=== PATIENT | male | born 1965 | race Caucasian/White ===

== ENCOUNTER 2018-12-18 09:56 | Emergency (ER) | payer SELFPAY ==
[2018-12-18] MEDS ORDERED: ASPIRIN 81 MG TABLET, CHEWABLE PO ONE (10:08)
[2018-12-18] MEDS ORDERED: TENECTEPLASE INJ 50 MG KIT IV ONE (10:12)
[2018-12-18 10:22] LABS: HEMATOCRIT 47.9 % (37.9-51.0); HEMOGLOBIN 16.4 g/dL (13.5-17.0); MEAN CORPUSCULAR HEMOGLOBIN 30.9 pg (27.0-33.4); MEAN CORPUSCULAR HGB CONC 34.3 g/dL (32.0-36.0); MEAN CORPUSCULAR VOLUME 90 fl (80-97); PLATELET COUNT 279 10^3/uL (150-450); RED BLOOD COUNT 5.32 10^6/uL (4.35-5.55); RED CELL DISTRIBUTION WIDTH 13.8 % (11.5-14.0); WHITE BLOOD COUNT 12.4 10^3/uL (4.0-10.5)
[2018-12-18] MEDS ORDERED: ONDANSETRON HCL INJ/PF 4 MG/2 ML SDV IV ONE (10:27)
[2018-12-18] MEDS ORDERED: CLOPIDOGREL BISULFATE 300 MG TABLET PO ONE (10:27)
[2018-12-18] MEDS ORDERED: NORMAL SALINE 1000 ML 1,000 ML IV ONE (10:27)
[2018-12-18 10:28] LABS: INTERNATIONAL RATION (INR) 0.91; PARTIAL THROMBOPLASTIN TIME 27.7 SEC (23.5-35.8); PROTHROMBIN TIME 12.7 SEC (11.4-15.4)
--- NOTE | 2018-12-18 10:29 | RADIOLOGY REPORT (SQ) ---
EXAM DESCRIPTION: CHEST SINGLE VIEW COMPLETED DATE/TIME: 12/18/2018 10:24 am REASON FOR STUDY: Chest Pain r/o ND COMPARISON: None. EXAM PARAMETERS: NUMBER OF VIEWS: One view. TECHNIQUE: Single frontal radiographic view of the chest acquired. RADIATION DOSE: NA LIMITATIONS: None. FINDINGS: LUNGS AND PLEURA: No opacities, masses or pneumothorax. No pleural effusion. MEDIASTINUM AND HILAR STRUCTURES: No masses. Contour normal. HEART AND VASCULAR STRUCTURES: Heart normal in size. Normal vasculature. BONES: No acute findings. HARDWARE: None in the chest. OTHER: No other significant finding. IMPRESSION: NO ACUTE RADIOGRAPHIC FINDING IN THE CHEST. TECHNICAL DOCUMENTATION: JOB ID: [id number] [employer]- All Rights Reserved Reading location - IP/workstation name: [email or web address]
[2018-12-18 10:43] LABS: ANION GAP 15 (5-19); BLOOD UREA NITROGEN 19 mg/dL (7-20); CALCIUM 10.8 mg/dL (8.4-10.2); CARBON DIOXIDE 24 mmol/L (22-30); CHLORIDE 106 mmol/L (98-107); CREATINE KINASE 201 U/L (55-170); GLUCOSE 209 mg/dL (75-110); POTASSIUM 4.7 mmol/L (3.6-5.0); SODIUM 144.7 mmol/L (137-145)
[2018-12-18] MEDS ORDERED: ENOXAPARIN SODIUM INJ 100 MG/1 ML DISP.SYRIN SUBCUT ONE (10:43)
--- NOTE | 2018-12-18 10:47 | ER Document Report ---
Entered by ABBY COHEN SCRIBE 12/18/18 1016 Acting as scribe for:LIZZETH WEST DO ED Cardiac - General Chief Complaint: Chest Pain Stated Complaint: CHEST PAIN Time Seen by Provider: 12/18/18 10:08 Primary Care Provider: BARBARA COLBERT MD [Primary Care Provider] - Follow up as needed Information source: Patient Notes: 53-year-old that male presents to the emergency department today with complaints of chest pain which began at 0400 this morning. Patient states he tried to take Pepto-Bismol for this chest pain with no relief. Patient states he does not see a doctor regularly but to his knowledge he has no cardiac history. Patient states that he smokes cigarettes "every once in a while" along with occasional marijuana. Patient states he has had some associated nausea but denies any shortness of breath. No history of heart disease. Patient does not have any medical problems that he is aware of. TRAVEL OUTSIDE OF THE [place] IN LAST 30 DAYS: No - Related Data Allergies/Adverse Reactions: No Known Allergies Allergy (Unverified 12/18/18 10:06) Past Medical History - General Information source: Patient - Social History Smoking Status: Current Some Day Smoker Cigarette use (# per day): Yes Frequency of alcohol use: Social Drug Abuse: Marijuana Lives with: Family Family History: Reviewed & Not Pertinent Review of Systems - Review of Systems Constitutional: No symptoms reported EENT: No symptoms reported Cardiovascular: See HPI, Chest pain Respiratory: denies: Short of breath Gastrointestinal: See HPI, Nausea Genitourinary: No symptoms reported Male Genitourinary: No symptoms reported Musculoskeletal: No symptoms reported Skin: No symptoms reported Hematologic/Lymphatic: No symptoms reported Neurological/Psychological: No symptoms reported -: Yes All other systems reviewed and negative Physical Exam - Notes Notes: Physical Exam: General: Alert, appears uncomfortable. HEENT: Normocephalic. Atraumatic. PERRL. Extraocular movements intact. Oropharynx clear. Neck: Supple. Non-tender. Respiratory: No respiratory distress. Clear and equal breath sounds bilaterally. Cardiovascular: Regular rate and rhythm. Abdominal: Normal Inspection. Non-tender. No distension. Normal Bowel Sounds. Back: Non-tender. No deformity or step off. Extremities: Moves all four extremities. Upper extremities: Normal inspection. Normal ROM. Lower extremities: Normal inspection. No edema. Normal ROM. Neurological: Normal cognition. AAOx4. Normal speech. Psychological: Normal affect. Normal Mood. Skin: Warm. Diaphoretic. Normal color. 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 12/18/18 10:20 Dr. Wagner Bautista, Interventional cardiology returned call, requests copy of EKG, accepted for flight transfer. 10:40 Patient is a 53-year-old male who presents with chest pain and nausea. He has ST elevation in II, III,m aVF on EKG with reciprocal changes. Patient had STEMI protocol started in the emergency department. He was given aspirin 324, Plavix 300, Lovenox 85 mg based on his 86 kg weight, and tenecteplase 45 mg again based on his 86 kg weight. Patient is diaphoretic. Repeat EKG shows no changes from first EKG. Patient was discussed with Dr. Bautista at [facility], which is the patient's preferred hospital. EKG has been sent and Dr. Bautista agrees that it is a STEMI. He has been accepted and will go via air to [facility]. Transport is here to get him. He is stable at this time for transport. Of note instructions have been given for no morphine, nitroglycerin. Patient is receiving fluid bolus. Mother is present at bedside. 12/18/18 10:47 - Laboratory Result Diagrams: 12/18/18 10:14 12/18/18 10:14 Laboratory results interpreted by me: 12/18/18 10:14 WBC 12.4 H Critical Care Note - Critical Care Note Total time excluding time spent on procedures (mins): 50 - Evaluation and management of STEMI, multiple re-evaluations, coordination of transfer, counseling of patient and family Discharge - Discharge Clinical Impression: STEMI (ST elevation myocardial infarction) Qualifiers: Involved coronary artery: unspecified coronary artery Qualified Code(s): I21.3 - ST elevation (STEMI) myocardial infarction of unspecified site Condition: Stable Disposition: [facility] Scribe Attestation: 12/18/18 10:47 I personally performed the services described in the documentation, reviewed and edited the documentation which was dictated to the scribe in my presence, and it accurately records my words and actions. I personally performed the services described in the documentation, reviewed and edited the documentation which was dictated to the scribe in my presence, and it accurately records my words and actions.
[2018-12-18 10:54] VITALS: BP 168/127
[2018-12-18 10:55] LABS: CREATINE KINASE MB 6.58 ng/mL (<4.55)
[2018-12-18 11:00] LABS: TROPONIN I 0.249 ng/mL
[2018-12-18] MEDS ORDERED: CLOPIDOGREL BISULFATE 300 MG TABLET ONE (11:10)
[2018-12-18] MEDS ORDERED: ASPIRIN 81 MG TABLET, CHEWABLE ONE (11:10)
[2018-12-18 11:16] LABS: ALANINE AMINOTRANSFERASE 41 U/L (21-72); ALBUMIN 4.9 g/dL (3.5-5.0); ALKALINE PHOSPHATASE 97 U/L (38-126); ASPARTATE AMINO TRANSFERASE 50 U/L (17-59); BILIRUBIN,DIRECT 0.3 mg/dL (0.0-0.4); BILIRUBIN,TOTAL 0.6 mg/dL (0.2-1.3); TOTAL PROTEIN 9.3 g/dL (6.3-8.2)
--- NOTE | 2018-12-18 22:55 | EKG REPORT ---
SEVERITY:- ABNORMAL ECG - SINUS RHYTHM PROBABLE LEFT ATRIAL ABNORMALITY INFERIOR INFARCT, ACUTE ANTERIOR INFARCT, OLD : Confirmed by: Dionte Garcia 18-Dec-2018 22:55:05
--- NOTE | 2018-12-18 22:55 | EKG REPORT ---
SEVERITY:- ABNORMAL ECG - SINUS RHYTHM PROBABLE LEFT ATRIAL ABNORMALITY INFERIOR INFARCT, ACUTE ANTERIOR INFARCT, OLD PROLONGED QT INTERVAL : Confirmed by: Dionte Garcia 18-Dec-2018 22:54:57
== END 2018-12-18 10:40 | disposition short-term general hospital (02) ==
LOC: ER 09:56
DX: I21.3 ST elevation (STEMI) myocardial infarction of unspecified site (principal); R11.0 Nausea; R07.9 Chest pain, unspecified; R06.02 Shortness of breath; F12.10 Cannabis abuse, uncomplicated; R61 Generalized hyperhidrosis; F17.210 Nicotine dependence, cigarettes, uncomplicated
CPT/HCPCS: 93005; 99291; 96372; 96374; 96375; 36415; 82553; 82550; 85027; 85610; 85730; 80076; 80048; 84484; 71045; 93010; J3101; J3490; J2405; J7030; J1650

== ENCOUNTER 2019-03-01 03:34 | Inpatient (IN) | payer OTHER ==
[2019-03-01] MEDS ORDERED: IPRATROPIUM/ALBUTEROL 0.5-2.5 MG/3 ML AMPUL NEB ONE ×2 (03:39→03:44)
[2019-03-01] MEDS ORDERED: NITROGLYCERIN/D5W 50 MG/250 ML RTUINJ IV PRN (03:44)
[2019-03-01 03:57] LABS: ABSOLUTE BASOPHILS # (AUTO) 0.1 10^3/uL (0.0-0.2); ABSOLUTE EOSINOPHILS # (AUTO) 0.2 10^3/uL (0.0-0.6); ABSOLUTE LYMPHOCYTES (AUTO) 6.1 10^3/uL (0.5-4.7); ABSOLUTE MONOCYTES (AUTO) 0.7 10^3/uL (0.1-1.4); ABSOLUTE NEUT (AUTO) 5.7 10^3/uL (1.7-8.2); BASOPHILS % (AUTO) 0.7 % (0-2); EOSINOPHILS % (AUTO) 1.8 % (0-6); HEMATOCRIT 44.6 % (37.9-51.0); HEMOGLOBIN 14.4 g/dL (13.5-17.0); LYMPHOCYTES % (AUTO) 47.1 % (13-45); MEAN CORPUSCULAR HEMOGLOBIN 29.4 pg (27.0-33.4); MEAN CORPUSCULAR HGB CONC 32.2 g/dL (32.0-36.0); MEAN CORPUSCULAR VOLUME 91 fl (80-97); MONOCYTES % (AUTO) 5.8 % (3-13); PLATELET COUNT 249 10^3/uL (150-450); RED BLOOD COUNT 4.88 10^6/uL (4.35-5.55); RED CELL DISTRIBUTION WIDTH 15.1 % (11.5-14.0); SEGMENTED NEUTROPHILS % (AUTO) 44.6 % (42-78); TOTAL CELLS COUNTED % (AUTO) 100 %; VENOUS BLOOD BASE EXCESS -10.5 mmol/L; VENOUS BLOOD HCO3 23.5 mmol/L (20-32); WHITE BLOOD COUNT 12.9 10^3/uL (4.0-10.5)
[2019-03-01 04:00] LABS: ARTERIAL BLOOD BASE EXCESS -12.5 mmol/L; ARTERIAL BLOOD H2CO3 2.48 mmol/L (1.05-1.35); ARTERIAL BLOOD HCO3 20.3 mmol/L (20-24); ARTERIAL BLOOD O2 SATURATION 98.6 % (94-98); ARTERIAL BLOOD PO2 195.5 mmHg (80-100); ARTERIAL BLOOD TOTAL CO2 22.9 mmol/L (23-27)
[2019-03-01 04:03] LABS: INTERNATIONAL RATION (INR) 1.04; PROTHROMBIN TIME 14.1 SEC (11.4-15.4)
[2019-03-01 04:04] LABS: ARTERIAL BLOOD FIO2 100%; ARTERIAL BLOOD PCO2 82.3 mmHg (35-45); ARTERIAL BLOOD PH 7.01 (7.35-7.45); VENOUS BLOOD PH 6.99 (7.30-7.42)
[2019-03-01 04:15] LABS: ALANINE AMINOTRANSFERASE 28 U/L (21-72); ALBUMIN 4.8 g/dL (3.5-5.0); ALKALINE PHOSPHATASE 75 U/L (38-126); ANION GAP 15 (5-19); ASPARTATE AMINO TRANSFERASE 31 U/L (17-59); BILIRUBIN,DIRECT 0.3 mg/dL (0.0-0.4); BILIRUBIN,TOTAL 0.7 mg/dL (0.2-1.3); BLOOD UREA NITROGEN 15 mg/dL (7-20); CALCIUM 9.1 mg/dL (8.4-10.2); CARBON DIOXIDE 23 mmol/L (22-30); CHLORIDE 105 mmol/L (98-107); CREATINE KINASE 137 U/L (55-170); GLUCOSE 338 mg/dL (75-110); POTASSIUM 4.1 mmol/L (3.6-5.0); SODIUM 142.9 mmol/L (137-145); TOTAL PROTEIN 8.5 g/dL (6.3-8.2)
--- NOTE | 2019-03-01 04:22 | RADIOLOGY REPORT (SQ) ---
EXAM DESCRIPTION: XR CHEST 1 VIEW COMPLETED DATE/TME: 03/01/2019 03:44 CLINICAL HISTORY: 53 years, Male, SOB, hypoxia COMPARISON: None. NUMBER OF VIEWS: 1 TECHNIQUE: Portable chest LIMITATIONS: None. FINDINGS: Cardiomegaly. Sternotomy wires with placement. Osteopenia with mild diffuse interstitial edema. No pneumothorax IMPRESSION: Cardiomegaly with mild diffuse interstitial edema copyright 2010 [employer]- All Rights Reserved
[2019-03-01 04:26] LABS: CREATINE KINASE MB 1.81 ng/mL (<4.55); TROPONIN I 0.027 ng/mL
[2019-03-01] MEDS ORDERED: FUROSEMIDE INJ/PF 40 MG/4 ML SDV IV ONE (05:18)
[2019-03-01] MEDS ORDERED: METHYLPREDNISOLONE INJ 125 MG/2 ML SDV IV ONE (05:35)
[2019-03-01] MEDS ORDERED: MAG HYDROX/AL HYDROX/SIMETH SUSP 30 ML UDCUP PO PRN (05:45)
[2019-03-01] MEDS ORDERED: ONDANSETRON HCL INJ/PF 4 MG/2 ML SDV IV PRN ×2 (05:45→07:00)
[2019-03-01] MEDS ORDERED: ZOLPIDEM TARTRATE 5 MG TABLET PO PRN (05:45)
[2019-03-01] MEDS ORDERED: MAGNESIUM HYDROXIDE SUSP 30 ML UDCUP PO PRN (05:45)
--- NOTE | 2019-03-01 05:46 | ER Document Report ---
Entered by BAM YOUNG SCRIBE 03/01/19 1055 Acting as scribe for:ROXIE COATES DO ED General - General Stated Complaint: RESPIRATORY DISTRESS Time Seen by Provider: 03/01/19 03:43 Mode of Arrival: Medic Information source: Emergency Med Personnel Notes: Patient is a 53 year old male with a history of quadruple bypass presents to the emergency department via EMS due to shortness of breath. EMS states the patient's mother called EMS after the patient began complaining of shortness of breath. Upon EMS arrival, the patient was found to be hypoxic with an oxygen saturation rate of 78% on room air, a blood pressure of 205/130 and an heart rate of 130 bpm. EMS states they placed the patient on CPAP however he became more short of breath and altered so they proceeded to bag the patient. They also administered sublingual nitro. Patient has a blood pressure of 205/130 and a heart rate of 130. TRAVEL OUTSIDE OF THE [place] IN LAST 30 DAYS: No - Related Data Allergies/Adverse Reactions: No Known Allergies Allergy (Unverified 12/18/18 10:06) Past Medical History - General Information source: Emergency Med Personnel, [facility] Records - Social History Smoking Status: Former Smoker Cigarette use (# per day): Yes Chew tobacco use (# tins/day): No Smoking Education Provided: No Frequency of alcohol use: Social Drug Abuse: Marijuana Lives with: Family Family History: Reviewed & Not Pertinent Review of Systems - Review of Systems Notes: ROS obtained from EMS Constitutional: No symptoms reported EENT: No symptoms reported Cardiovascular: No symptoms reported Respiratory: See HPI, Short of breath Gastrointestinal: No symptoms reported Genitourinary: No symptoms reported Male Genitourinary: No symptoms reported Musculoskeletal: No symptoms reported Skin: No symptoms reported Hematologic/Lymphatic: No symptoms reported Neurological/Psychological: No symptoms reported -: Yes All other systems reviewed and negative Physical Exam - Vital signs Vitals: Resp Pulse Ox 32 H 82 L 03/01/19 03:36 03/01/19 03:36 Interpretation: Hypoxic, Tachypneic - Notes Notes: GENERAL: Obtunded, does not answer questions, diaphoretic. Severe respiratory distress. HEAD: Normocephalic, atraumatic. EYES: Pupils equal, round, and reactive to light. Extraocular movements intact. ENT: Oral mucosa moist, tongue midline. NECK: Full range of motion. Supple. Trachea midline. LUNGS: Tachypneic, inspiratory crackles, expiratory wheezes. Severe respiratory distress. Poor movement HEART: Tachycardic. No murmurs, gallops, or rubs. ABDOMEN: Soft, non-tender. Non-distended. Bowel sounds present in all 4 quadrants. No guarding, rigidity, or rebound. EXTREMITIES: Moves all 4 extremities spontaneously. No edema, radial and dorsalis pedis pulses 2/4 bilaterally. No cyanosis. NEUROLOGICAL: Obtunded, does not answer questions. PSYCH: Obtunded,does not answer questions. SKIN: Warm, diaphoretic. Course - Re-evaluation Re-evalutation: 03/01/19 03:45 Patient placed on BiPAP upon arrival to the ED. BiPAP is set to 16/6 at 100% with a base rate of 8. 03/01/19 05:43 Patient is improved significantly on BiPAP, 3 duo nebs and a high-dose nitroglyc nicolas. Patient is now wide awake, no longer diaphoretic and is able to provide bit more history. Patient denies any history of COPD or congestive heart failure. States that he used to smoke but he quit several decades ago. Denies any chest pain states he is feeling much better. Blood work reveals leukocytosis at 12.9, coags normal, arterial blood gas shows respiratory acidosis with pH of 7.01 and a PCO2 of 82.3, chemistries show slightly elevated creatinine at 1.29, elevated glucose at 338, lactic acid elevated at 4.0 although he does not have any other signs of sepsis, does not meet sepsis criteria and there is no source of infection. Troponin is detectable but still negative at 0.027, proBNP elevated at 2520. Chest x-ray shows diffuse interstitial edema but no signs of pneumonia. Discussed patient with Dr. Lanza who agrees to accept the patient to the IMCU and admission status. - Vital Signs Vital signs: Temp Pulse Resp BP Pulse Ox 97.3 F 18 120/89 H 100 03/01/19 05:46 03/01/19 05:46 03/01/19 05:46 03/01/19 05:46 - Laboratory Result Diagrams: 03/01/19 03:50 03/01/19 03:50 Laboratory results interpreted by me: 03/01/19 03/01/1919 03:50 03:50 03:50 WBC 12.9 H RDW 15.1 H Lymphocytes % 47.1 H Absolute Lymphocytes 6.1 H Carbonic Acid ABG pH ABG pCO2 ABG pO2 ABG Total CO2 ABG O2 Saturation VBG pH VBG pCO2 Creatinine 1.29 H Est GFR (Non-Af Amer) 58 L Glucose 338 H POC Glucose Lactic Acid NT-Pro-B Natriuret Pep 2520 H Total Protein 8.5 H 03/01/19 03/01/19 03/01/19 03:50 03:50 03:50 WBC RDW Lymphocytes % Absolute Lymphocytes Carbonic Acid 2.48 H ABG pH 7.01 L* ABG pCO2 82.3 H* ABG pO2 195.5 H ABG Total CO2 22.9 L ABG O2 Saturation 98.6 H VBG pH 6.99 L* VBG pCO2 99.0 H* Creatinine Est GFR (Non-Af Amer) Glucose POC Glucose Lactic Acid 4.0 H NT-Pro-B Natriuret Pep Total Protein 03/01/19 03:57 WBC RDW Lymphocytes % Absolute Lymphocytes Carbonic Acid ABG pH ABG pCO2 ABG pO2 ABG Total CO2 ABG O2 Saturation VBG pH VBG pCO2 Creatinine Est GFR (Non-Af Amer) Glucose POC Glucose 311 H Lactic Acid NT-Pro-B Natriuret Pep Total Protein - EKG Interpretation by Me Additional EKG results interpreted by me: 03/01/19 05:45 EKG shows sinus tachycardia at a rate of 125, normal axis, poor R wave progression, no ST segment elevations or depressions, there are T wave inversions noted in 2, 3, AVF as well as V6 per my interpretation. Critical Care Note - Critical Care Note Total time excluding time spent on procedures (mins): 45 Discharge - Discharge Clinical Impression: Acute respiratory failure with hypoxia and hypercapnia, Acute pulmonary edema, Acute respiratory acidosis Condition: Fair Disposition: ADMITTED INPATIENT Admitting Provider: Pool (Hospitalist) I personally performed the services described in the documentation, reviewed and edited the documentation which was dictated to the scribe in my presence, and it accurately records my words and actions.
[2019-03-01] MEDS ORDERED: ACETAMINOPHEN 325 MG TABLET PO PRN (05:53)
[2019-03-01] MEDS ORDERED: MORPHINE SULFATE 10 MG/ML INJ IV PRN ×4 (05:53→06:01)
[2019-03-01] MEDS ORDERED: INSULIN REG, HUMAN 100 UNIT/ML 3 ML VIAL (PYX) SUBCUT PRN (05:53)
[2019-03-01] MEDS ORDERED: NICOTINE 21 MG/24 HR PATCH.TD24 TD PRN (05:53)
[2019-03-01] MEDS ORDERED: NITROGLYCERIN 0.4 MG/TAB 25 TAB/BOTTLE SL PRN (05:53)
[2019-03-01] MEDS ORDERED: LEVALBUTEROL HCL NEB 0.63 MG/3 ML AMPUL NEB PRN (05:53)
[2019-03-01] MEDS ORDERED: NITROGLYCERIN 2% OINTMENT 1 GM PACKET TP SCH (06:00)
[2019-03-01] MEDS ORDERED: HYDRALAZINE HCL INJ/PF 20 MG/1 ML SDV IV PRN (06:31)
[2019-03-01] MEDS ORDERED: METOPROLOL TARTRATE PF/INJ 5 MG/5 ML SDV IV PRN (06:32)
--- NOTE | 2019-03-01 06:55 | PDOC H&P ---
History of Present Illness Admission Date/PCP: 03/01/2019 06:00 No Local PCP Patient complains of: Dyspnea History of Present Illness: CANDACE HAMLIN is a 53 year old male who presented to the emergency room with acute onset dyspnea. Patient relates that he was at home in bed asleep when he thou ght he heard something out in his yard. He got up out of bed and ran outside to see what was going on and subsequently suddenly developed severe dyspnea causing him to summon EMS for assistance. He denies other associated symptoms and also denies prior similar episodes. He has not identified any aggravating or ameliorating factors for his acute onset dyspnea. Upon the arrival of EMS to the patient's home they found him tachycardic with a heart rate of 130, hypoxic with an O2 sat of 78% and hypertensive with a blood pressure of 205/130. Patient was unable to tolerate CPAP and required supplemental oxygen with [id number] delivery and he was also administered nitroglycerin sublingually. Upon the patient's arrival to the emergency room he was found to have continued hypoxia hypertension and tachycardia. His chest x-ray revealed interstitial edema consistent with acute pulmonary edema and he was treated with intravenous Lasix as well as intravenous Solu-Medrol and aerosol nebulizer treatments with DuoNeb. He was given supplemental oxygen via BiPAP and was started on a nitroglycerin intravenous infusion. Patient showed significant improvement and was subsequently admitted to the hospital for further evaluation and treatment. Past Medical History Cardiac Medical History: Reports: Coronary Artery Disease, Myocardial Infarction, Hyperlipidema, Hypertension Denies: Atrial Fibrillation, Congestive Heart Failure, DVT, Peripheral Vascu lar Disease, Pulmonary Embolism Pulmonary Medical History: Denies: Asthma, Chronic Obstructive Pulmonary Disease (COPD), Respiratory Failure EENT Medical History: Denies: Cataracts, Ears - Hearing aids Neurological Medical History: Denies: Hemorrhagic CVA, Ischemic CVA, Seizures Endocrine Medical History: Denies: Diabetes Mellitus Type 1, Diabetes Mellitus Type 2, Hyperthyroidism, Hypothyroidism Renal/ Medical History: Denies: Chronic Kidney Disease, Nephrolithiasis Malignancy Medical History: Reports: None GI Medical History: Denies: Cirrhosis, Hepatitis Musculoskeltal Medical History: Denies: Arthritis, Gout Skin Medical History: Denies: Eczema, Psoriasis Psychiatric Medical History: Reports: Substance Abuse Denies: Alcohol Dependency, Tobacco Dependency Traumatic Medical History: Reports: None Hematology: Denies: Anemia, Bleeding Tendencies Infectious Medical History: Reports: None Past Surgical History Past Surgical History: Reports: Cardiac Catheterization, Coronary Artery Bypass Graft - X4 grafts, Coronary Stent - X 1 Social History Information Source: Patient Lives with: Family Smoking Status: Former Smoker Frequency of Alcohol Use: None Hx Recreational Drug Use: Yes - No current use of marijuana. Drugs: Marijuana Hx Prescription Drug Abuse: No - Advance Directive Resuscitation Status: Full Code Surrogate healthcare decision maker:: Mariaa Hamlin Family History Family History: DM, Hypertension. denies: CAD, Hyperlipidemia, Malignancy Parental Family History Reviewed: Yes Children Family History Reviewed: No Sibling(s) Family History Reviewed.: Yes Medication/Allergy Allergies/Adverse Reactions: No Known Allergies Allergy (Unverified 12/18/18 10:06) Review of Systems Constitutional: ABSENT: chills, fever(s) Eyes: ABSENT: visual disturbances, other - Eye pain Ears: ABSENT: hearing changes, other - Ear pain Nose, Mouth, and Throat: ABSENT: mouth pain, sore throat Cardiovascular: PRESENT: as per HPI, dyspnea on exertion. ABSENT: chest pain, edema, orthropnea, palpitations Respiratory: PRESENT: as per HPI, dyspnea. ABSENT: cough Gastrointestinal: ABSENT: abdominal pain, constipation, diarrhea, nausea, vomiting Genitourinary: ABSENT: dysuria, hematuria Musculoskeletal: ABSENT: back pain, joint swelling, muscle weakness Integumentary: ABSENT: pruritus, rash Neurological: ABSENT: confusion, convulsions, focal weakness, memory loss, syncope Psychiatric: ABSENT: anxiety, depression Endocrine: ABSENT: cold intolerance, heat intolerance Hematologic/Lymphatic: ABSENT: easy bleeding, easy bruising Physical Exam Vital Signs: Temp Pulse Resp BP Pulse Ox 97.3 F 18 120/89 H 100 03/01/19 05:46 03/01/19 05:46 03/01/19 05:46 03/01/19 05:46 Intake & Output 02/27/19 02/28/19 03/01/19 23:59 23:59 23:59 Intake Total 14 Balance 14 Weight 90.1 kg General appearance: PRESENT: cooperative, mild distress - On BiPAP, obese, other - On BiPAP Head exam: PRESENT: atraumatic, normocephalic Eye exam: ABSENT: conjunctival injection, scleral icterus Ear exam: PRESENT: normal external ear exam. ABSENT: bleeding, drainage Mouth exam: PRESENT: dry mucosa, neck supple Neck exam: ABSENT: JVD, thyromegaly, tracheal deviation Respiratory exam: PRESENT: accessory muscle use - Minimal accessory muscle use while on BiPAP, rales - Minimal bibasilar fine rales noted at the time of my exam, symmetrical, other - On BiPAP. ABSENT: retraction Cardiovascular exam: PRESENT: RRR, tachycardia. ABSENT: clicks, gallop, rubs Pulses: PRESENT: normal radial pulses, normal dorsalis pedis pul Vascular exam: PRESENT: normal capillary refill. ABSENT: pallor GI/Abdominal exam: PRESENT: normal bowel sounds, soft Extremities exam: ABSENT: joint swelling, pedal edema Musculoskeletal exam: PRESENT: full ROM, normal inspection Neurological exam: PRESENT: alert, oriented to person, oriented to place, oriented to time, oriented to situation, CN II-XII grossly intact. ABSENT: motor sensory deficit Psychiatric exam: PRESENT: appropriate affect, normal mood Skin exam: PRESENT: dry, intact, warm. ABSENT: jaundice, rash, urticaria Results Laboratory Results: 03/01/19 03:50 03/01/19 03:50 03/01/19 03/01/19 03/01/19 03:50 03:50 03:50 WBC 12.9 H RBC 4.88 Hgb 14.4 Hct 44.6 MCV 91 MCH 29.4 MCHC 32.2 RDW 15.1 H Plt Count 249 Seg Neutrophils % 44.6 Lymphocytes % 47.1 H Monocytes % 5.8 Eosinophils % 1.8 Basophils % 0.7 Absolute Neutrophils 5.7 Absolute Lymphocytes 6.1 H Absolute Monocytes 0.7 Absolute Eosinophils 0.2 Absolute Basophils 0.1 Carbonic Acid HCO3/H2CO3 Ratio ABG pH ABG pCO2 ABG pO2 ABG HCO3 ABG O2 Saturation ABG Base Excess VBG pH VBG pCO2 VBG HCO3 VBG Base Excess FiO2 Sodium 142.9 Potassium 4.1 Chloride 105 Carbon Dioxide 23 Anion Gap 15 BUN 15 Creatinine 1.29 H Est GFR ( Amer) > 60 Est GFR (Non-Af Amer) 58 L Glucose 338 H Lactic Acid 4.0 H Calcium 9.1 Total Bilirubin 0.7 AST 31 ALT 28 Alkaline Phosphatase 75 Total Protein 8.5 H Albumin 4.8 03/01/19 03/01/19 03:50 03:50 WBC RBC Hgb Hct MCV MCH MCHC RDW Plt Count Seg Neutrophils % Lymphocytes % Monocytes % Eosinophils % Basophils % Absolute Neutrophils Absolute Lymphocytes Absolute Monocytes Absolute Eosinophils Absolute Basophils Carbonic Acid 2.48 H HCO3/H2CO3 Ratio 8:1 ABG pH 7.01 L* ABG pCO2 82.3 H* ABG pO2 195.5 H ABG HCO3 20.3 ABG O2 Saturation 98.6 H ABG Base Excess -12.5 VBG pH 6.99 L* VBG pCO2 99.0 H* VBG HCO3 23.5 VBG Base Excess -10.5 FiO2 100% Sodium Potassium Chloride Carbon Dioxide Anion Gap BUN Creatinine Est GFR ( Amer) Est GFR (Non-Af Amer) Glucose Lactic Acid Calcium Total Bilirubin AST ALT Alkaline Phosphatase Total Protein Albumin 03/01/19 03/01/19 03:50 03:50 Creatine Kinase 137 CK-MB (CK-2) 1.81 Troponin I 0.027 NT-Pro-B Natriuret Pep 2520 H Impressions: Chest X-Ray 03/01/19 03:44 IMPRESSION: Cardiomegaly with mild diffuse interstitial edema copyright 2011 [employer]- All Rights Reserved Assessment and Plan - Diagnosis (1) Acute pulmonary edema Is this a current diagnosis for this admission?: Yes Plan: Patient's acute pulmonary edema will be treated with topical nitroglycerin paste and supportive and symptomatic cares. A regimen for treatment should be established after evaluation of his cardiac function via echocardiogram and also serial cardiac enzymes have been obtained ruling out an acute myocardial infarction. (2) Acute respiratory failure with hypoxia and hypercapnia Is this a current diagnosis for this admission?: Yes Plan: Patient be treated with BiPAP and supplemental oxygen for correction of his hypoxia and hypercapnia. He will be monitored with serial arterial blood gases as required. Nebulized Xopenex will be given if needed for wheezing. (3) Hypertensive crisis Is this a current diagnosis for this admission?: Yes Plan: Patient's hypertensive crisis will be treated with topical nitroglycerin paste and further antihypertensive agents administered intravenously as required using metoprolol 5 mg IV every 4 hours and/or hydralazine 20 mg IV every 4 hours as needed for systolic blood pressure greater than 160 and/or diastolic pressure greater than 100. (4) Coronary artery disease Qualifiers: Coronary Disease-Associated Artery/Lesion type: [place] artery [place] vs. transplanted heart: [place] heart Associated angina: without angina Qualified Code(s): I25.10 - Atherosclerotic heart disease of [place] coronary artery without angina pectoris Is this a current diagnosis for this admission?: Yes Plan: Patient has a history of coronary artery disease with a recent STEMI. He will have serial cardiac enzymes performed and further treatment as indicated. Cardiology consultation will be considered. Patient will receive morphine sulfate 2 to 4 mg IV every 2 hours on a as needed basis via sliding scale should he develop chest pain. - Time Time Spent with patient: 25-34 minutes Smoking Cessation Education: 3 to 10 minutes - Recommend smoking cessation: Counseled briefly Medications reviewed and adjusted accordingly: Yes Anticipated discharge: Home with Homehealth - Inpatient Certification Based on my medical assessment, after consideration of the patient's c omorbidities, presenting symptoms, or acuity I expect that the services needed warrant INPATIENT care.: Yes I certify that my determination is in accordance with my understanding of Medicare's requirements for reasonable and necessary INPATIENT services [42 CFR 412.3e].: Yes Medical Necessity: Significant Comorbidiites Make Outpatient Treatment Too Risky, Need Close Monitoring Due to Risk of Patient Decompensation, Need For Continuous Telemetry Monitoring, Need for Nebulizer Therapy and Monitoring of Response, Risk of Complication if Not Cared For in Hospital
[2019-03-01 07:11] LABS: CHOLESTEROL 155.95 mg/dL (0-200); CREATINE KINASE 128 U/L (55-170); TRIGLYCERIDES 133 mg/dL (<150)
--- NOTE | 2019-03-01 07:25 | EKG REPORT ---
SEVERITY:- ABNORMAL ECG - SINUS TACHYCARDIA LEFT ATRIAL ABNORMALITY BORDERLINE INFERIOR Q WAVES, EVOLUTIONARY CHANGES OF A RECENT INFERIOR AK 12/18/18, CONSIDER ANTERIOR INFARCT OLD NONSPECIFIC T ABNORMALITIES, INFERIOR LEADS : Confirmed by: Perico Gramajo MD 01-Mar-2019 07:25:09
[2019-03-01 07:26] LABS: DIRECT LDL 79 mg/dL (<100)
[2019-03-01 07:27] LABS: CREATINE KINASE MB 2.39 ng/mL (<4.55)
[2019-03-01 07:32] LABS: FREE T3 3.24 pg/mL (2.77-5.27); FREE T4 (FREE THYROXINE) 0.38 ng/dL (0.78-2.19)
[2019-03-01 07:38] LABS: TROPONIN I 0.041 ng/mL
[2019-03-01] MEDS ORDERED: IPRATROPIUM BROMIDE 0.02% NEB 0.5 MG/2.5 ML AMPUL NEB SCH (08:00)
[2019-03-01] MEDS ORDERED: BUDESONIDE NEB 0.5 MG/2 ML AMPUL NEB SCH (08:00)
[2019-03-01] MEDS ORDERED: LEVALBUTEROL HCL NEB 1.25 MG/3 ML AMPUL NEB SCH (08:00)
--- NOTE | 2019-03-01 08:43 | PDOC PROGRESS REPORT ---
Subjective Progress Note for:: 03/01/19 Subjective:: 53 year old male who presented to the emergency room with acute onset dyspnea. Patient relates that he was at home in bed asleep when he thought he heard something out in his yard. He got up out of bed and ran outside to see what was going on and subsequently suddenly developed severe dyspnea causing him to summon EMS for assistance. He denies other associated symptoms and also denies prior similar episodes. He has not identified any aggravating or ameliorating factors for his acute onset dyspnea. Upon the arrival of EMS to the patient's home they found him tachycardic with a heart rate of 130, hypoxic with an O2 sat of 78% and hypertensive with a blood pressure of 205/130. Patient was unable to tolerate CPAP and required supplemental oxygen with [id number] delivery and he was also administered nitroglycerin sublingually. Upon the patient's arrival to the emergency room he was found to have continued hypoxia hypertension and tachycardia. His chest x-ray revealed interstitial edema consistent with acute pulmonary edema and he was treated with intravenous Lasix as well as intravenous Solu-Medrol and aerosol nebulizer treatments with DuoNeb. He was given supplemental oxygen via BiPAP and was started on a nitroglycerin intravenous infusion. Patient showed significant improvement and was subsequently admitted to the hospital for further evaluation and treatment. 03/[id number]-hyzb-old male admitted with acute shortness of breath. Shortness of breath was resolved now. Pulse ox was 78% recorded by the EMS. He was also found to be tachycardic with a blood pressure of 205/130 this morning blood pressure is 120/89. Comfortably in the bed laying flat communicating well. No complaints. Reason For Visit: ACUTE PULMONARY EDEMA,ACUTE RESPIRATORY FAILURE Physical Exam Vital Signs: Temp Pulse Resp BP Pulse Ox 97.7 F 88 20 142/92 H 100 03/01/19 08:10 03/01/19 08:10 03/01/19 08:10 03/01/19 08:10 03/01/19 08:10 Intake & Output 02/28/19 03/01/19 03/02/19 06:59 06:59 06:59 Intake Total 14 Balance 14 Weight 90.1 kg 89.2 kg General appearance: PRESENT: no acute distress, obese Head exam: PRESENT: atraumatic Eye exam: PRESENT: PERRLA Neck exam: ABSENT: carotid bruit, JVD, lymphadenopathy, thyromegaly Respiratory exam: PRESENT: clear to auscultation phu. ABSENT: rales, rhonchi, wheezes Cardiovascular exam: PRESENT: RRR. ABSENT: diastolic murmur, rubs, systolic murmur GI/Abdominal exam: PRESENT: normal bowel sounds, soft. ABSENT: distended, guarding, mass, organolmegaly, rebound, tenderness Rectal exam: PRESENT: deferred Neurological exam: PRESENT: alert, awake, oriented to person, oriented to place, oriented to time, oriented to situation, CN II-XII grossly intact. ABSENT: motor sensory deficit Psychiatric exam: PRESENT: appropriate affect, normal mood. ABSENT: homicidal ideation, suicidal ideation Results Laboratory Results: 03/01/19 03:50 03/01/19 03:50 03/01/19 03/01/19 03/01/19 03:50 03:50 03:50 WBC 12.9 H RBC 4.88 Hgb 14.4 Hct 44.6 MCV 91 MCH 29.4 MCHC 32.2 RDW 15.1 H Plt Count 249 Seg Neutrophils % 44.6 Lymphocytes % 47.1 H Monocytes % 5.8 Eosinophils % 1.8 Basophils % 0.7 Absolute Neutrophils 5.7 Absolute Lymphocytes 6.1 H Absolute Monocytes 0.7 Absolute Eosinophils 0.2 Absolute Basophils 0.1 Carbonic Acid HCO3/H2CO3 Ratio ABG pH ABG pCO2 ABG pO2 ABG HCO3 ABG O2 Saturation ABG Base Excess VBG pH VBG pCO2 VBG HCO3 VBG Base Excess FiO2 Sodium 142.9 Potassium 4.1 Chloride 105 Carbon Dioxide 23 Anion Gap 15 BUN 15 Creatinine 1.29 H Est GFR ( Amer) > 60 Est GFR (Non-Af Amer) 58 L Glucose 338 H Lactic Acid 4.0 H Calcium 9.1 Total Bilirubin 0.7 AST 31 ALT 28 Alkaline Phosphatase 75 Total Protein 8.5 H Albumin 4.8 Triglycerides Cholesterol LDL Cholesterol Direct VLDL Cholesterol HDL Cholesterol TSH Free T4 Free T3 pg/mL 03/01/19 03/01/19 03/01/19 03:50 03:50 06:22 WBC RBC Hgb Hct MCV MCH MCHC RDW Plt Count Seg Neutrophils % Lymphocytes % Monocytes % Eosinophils % Basophils % Absolute Neutrophils Absolute Lymphocytes Absolute Monocytes Absolute Eosinophils Absolute Basophils Carbonic Acid 2.48 H HCO3/H2CO3 Ratio 8:1 ABG pH 7.01 L* ABG pCO2 82.3 H* ABG pO2 195.5 H ABG HCO3 20.3 ABG O2 Saturation 98.6 H ABG Base Excess -12.5 VBG pH 6.99 L* VBG pCO2 99.0 H* VBG HCO3 23.5 VBG Base Excess -10.5 FiO2 100% Sodium Potassium Chloride Carbon Dioxide Anion Gap BUN Creatinine Est GFR ( Amer) Est GFR (Non-Af Amer) Glucose Lactic Acid Calcium Total Bilirubin AST ALT Alkaline Phosphatase Total Protein Albumin Triglycerides Cholesterol LDL Cholesterol Direct VLDL Cholesterol HDL Cholesterol TSH 90.00 H Free T4 0.38 L Free T3 pg/mL 3.24 03/01/19 03/01/19 03/01/19 06:22 06:22 07:06 WBC RBC Hgb Hct MCV MCH MCHC RDW Plt Count Seg Neutrophils % Lymphocytes % Monocytes % Eosinophils % Basophils % Absolute Neutrophils Absolute Lymphocytes Absolute Monocytes Absolute Eosinophils Absolute Basophils Carbonic Acid HCO3/H2CO3 Ratio ABG pH ABG pCO2 ABG pO2 ABG HCO3 ABG O2 Saturation ABG Base Excess VBG pH VBG pCO2 VBG HCO3 VBG Base Excess FiO2 Sodium Potassium Chloride Carbon Dioxide Anion Gap BUN Creatinine Est GFR ( Amer) Est GFR (Non-Af Amer) Glucose Lactic Acid Cancelled Cancelled Calcium Total Bilirubin AST ALT Alkaline Phosphatase Total Protein Albumin Triglycerides 133 Cholesterol 155.95 LDL Cholesterol Direct 79 VLDL Cholesterol 27.0 HDL Cholesterol 56 TSH Free T4 Free T3 pg/mL 03/01/19 07:06 WBC RBC Hgb Hct MCV MCH MCHC RDW Plt Count Seg Neutrophils % Lymphocytes % Monocytes % Eosinophils % Basophils % Absolute Neutrophils Absolute Lymphocytes Absolute Monocytes Absolute Eosinophils Absolute Basophils Carbonic Acid HCO3/H2CO3 Ratio ABG pH ABG pCO2 ABG pO2 ABG HCO3 ABG O2 Saturation ABG Base Excess VBG pH VBG pCO2 VBG HCO3 VBG Base Excess FiO2 Sodium Potassium Chloride Carbon Dioxide Anion Gap BUN Creatinine Est GFR ( Amer) Est GFR (Non-Af Amer) Glucose Lactic Acid 2.2 H Calcium Total Bilirubin AST ALT Alkaline Phosphatase Total Protein Albumin Triglycerides Cholesterol LDL Cholesterol Direct VLDL Cholesterol HDL Cholesterol TSH Free T4 Free T3 pg/mL 03/01/19 03/01/19 03/01/19 03:50 03:50 06:22 Creatine Kinase 137 128 CK-MB (CK-2) 1.81 Troponin I 0.027 NT-Pro-B Natriuret Pep 2520 H 03/01/19 06:22 Creatine Kinase CK-MB (CK-2) 2.39 Troponin I 0.041 NT-Pro-B Natriuret Pep Impressions: Chest X-Ray 03/01/19 03:44 IMPRESSION: Cardiomegaly with mild diffuse interstitial edema copyright 2010 [employer]- All Rights Reserved Assessment and Plan - Diagnosis (1) Acute pulmonary edema Is this a current diagnosis for this admission?: Yes Plan: Patient's acute pulmonary edema will be treated with topical nitroglycerin paste and supportive and symptomatic cares. A regimen for treatment should be establi shed after evaluation of his cardiac function via echocardiogram and also serial cardiac enzymes have been obtained ruling out an acute myocardial infarction. 03/01/[id number]-umgu-old male admitted with the shortness of breath chest x-ray shows cardiomegaly and pulmonary vascular congestion on admission pulse ox is 78% acute respiratory failure with hypoxia most likely secondary to CHF exacerbation. Echocardiogram pending. Pulse ox 100% this morning on 2 L. Patient is comfortably in bed sleeping. (2) Acute respiratory failure with hypoxia and hypercapnia Is this a current diagnosis for this admission?: Yes Plan: Patient be treated with BiPAP and supplemental oxygen for correction of his hypoxia and hypercapnia. He will be monitored with serial arterial blood gases as required. Nebulized Xopenex will be given if needed for wheezing. 03/01/[id number]-rzfp-old male admitted for acute respiratory failure with hypoxia and hypercapnia patient was started on nebulizer treatments. Pulse ox is 100% on 2 L this morning. Received IV Solu-Medrol 125 mg 1 dose. on exam chest bilateral entry was good no wheezing no crepitations present. (3) Hypertensive crisis Is this a current diagnosis for this admission?: Yes Plan: Patient's hypertensive crisis will be treated with topical nitroglycerin paste and further antihypertensive agents administered intravenously as required using metoprolol 5 mg IV every 4 hours and/or hydralazine 20 mg IV every 4 hours as needed for systolic blood pressure greater than 160 and/or diastolic pressure greater than 100. 03/01/[id number]-mydh-old male admitted with hypertensive crisis he was started on nitroglycerin patch presently on metoprolol IV 5 mg every 4 hours, hydralazine 20 mg IV every 4 as needed he is also on lisinopril blood pressure is 120/89. Stable. Plan is to continue to closely monitor the blood pressures. (4) Coronary artery disease Qualifiers: Coronary Disease-Associated Artery/Lesion type: [place] artery [place] vs. transplanted heart: [place] heart Associated angina: without angina Qualified Code(s): I25.10 - Atherosclerotic heart disease of [place] coronary artery witho ut angina pectoris Is this a current diagnosis for this admission?: Yes Plan: Patient has a history of coronary artery disease with a recent STEMI. He will have serial cardiac enzymes performed and further treatment as indicated. Cardiology consultation will be considered. Patient will receive morphine sulfate 2 to 4 mg IV every 2 hours on a as needed basis via sliding scale should he develop chest pain. 03/01/2019-patient has history of coronary artery disease recent history of STEMI at in [facility]. Cardiac enzymes are negative so far. His troponin is 0.04. Elevated troponin may be secondary to CHF exacerbation. (5) CHF (congestive heart failure) Is this a current diagnosis for this admission?: Yes Plan: 03/01/2019-patient admitted with acute on chronic respiratory failure with hypoxia pulse ox is 78% chest x-ray shows cardiomegaly and vascular congestion. Most likely patient has chronic systolic hypertension admitted with acute exacerbation. Per report is pending. (6) Obesity (BMI 30.0-34.9) Is this a current diagnosis for this admission?: No Plan: 03/01/2019-BM is more than 30. Diet exercise weight loss lifestyle modifications are discussed dietary consult was requested. - Time Time Spent with patient: 25-34 minutes Smoking Cessation Education: 3 to 10 minutes Medications reviewed and adjusted accordingly: Yes Anticipated discharge: Home
[2019-03-01] MEDS: FAMOTIDINE 20 MG TABLET PO SCH ×2 (09:59→21:28)
[2019-03-01] MEDS: FUROSEMIDE 20 MG TABLET PO SCH ×2 (09:59→18:03)
[2019-03-01] MEDS: FONDAPARINUX SODIUM INJ 2.5 MG/0.5 ML DISP.SYRIN SUBCUT SCH (10:00)
[2019-03-01] MEDS: CLOPIDOGREL BISULFATE 75 MG TABLET PO SCH (10:00)
[2019-03-01] MEDS: DOCUSATE SODIUM 100 MG CAPSULE PO SCH ×2 (10:00→18:04)
[2019-03-01] MEDS: LISINOPRIL 10 MG TABLET PO SCH (10:00)
[2019-03-01] MEDS: METOPROLOL SUCCINATE 50 MG TAB.SR.24H PO SCH (10:00)
[2019-03-01] MEDS: LEVOTHYROXINE SODIUM 0.075 MG TABLET PO SCH ×2 (10:05→18:03)
[2019-03-01] MEDS ORDERED: METHYLPREDNISOLONE INJ 40 MG/1 ML SDV IV SCH (12:00)
--- NOTE | 2019-03-01 12:19 | RADIOLOGY REPORT (SQ) ---
EXAM DESCRIPTION: U/S THYROID/SFT TISS HD NECK COMPLETED DATE/TIME: 03/01/2019 9:44 am REASON FOR STUDY: hypothyroidism COMPARISON: None. TECHNIQUE: Dynamic and static caputo-scale images acquired of the thyroid gland. Selected additional c olor/power Doppler images recorded. All images stored to PACS. LIMITATIONS: None. FINDINGS: RIGHT LOBE: Prominent, 5.2 x 1.9 x 1.9 cm. Heterogeneous echotexture. No cystic or solid masses. LEFT LOBE: Normal size, 4 x 2 x 1.7 cm. Heterogeneous echotexture. No cystic or solid masses. ISTHMUS: Normal size, 4 mm. Heterogeneous echotexture. No cystic or solid masses. OTHER: No other significant finding. IMPRESSION: The right lobe is slightly prominent in size. The gland is diffusely heterogeneous but no definable masses are present. TECHNICAL DOCUMENTATION: JOB ID: [id number] [employer]- All Rights Reserved Reading location - IP/workstation name: [email or web address] [email or web address]
[2019-03-01 12:57] LABS: CREATINE KINASE MB 2.81 ng/mL (<4.55); TROPONIN I 0.04 ng/mL
[2019-03-01 14:25] LABS: APPEARANCE,URINE SLIGHTLY-CLOUDY; BILIRUBIN,URINE NEGATIVE (NEGATIVE); COLOR,URINE YELLOW; GLUCOSE, URINE NEGATIVE (NEGATIVE); KETONES,URINE NEGATIVE (NEGATIVE); LEUKOCYTE ESTERASE,URINE NEGATIVE (NEGATIVE); NITRITE,URINE NEGATIVE (NEGATIVE); PROTEIN,URINE NEGATIVE (NEGATIVE); URINE SPECIFIC GRAVITY 1.014; UROBILINOGEN,URINE NEGATIVE mg/dL (<2.0)
[2019-03-01 16:10] LABS: URINE AMPHETAMINES SCREEN NEGATIVE; URINE BARBITURATES SCREEN NEGATIVE; URINE BENZODIAZEPINES SCREEN NEGATIVE; URINE COCAINE SCREEN NEGATIVE; URINE METHADONE SCREEN NEGATIVE; URINE PHENCYCLIDINE SCREEN NEGATIVE
[2019-03-01 16:34] LABS: URINE MARIJUANA (THC) SCREEN UNCONFIRMED POSITIVE
--- NOTE | 2019-03-01 19:29 | XCELERA REPORT ---
[address] [address] Transthoracic Echocardiogram Report Name: CANDACE SQUIRES Age: 53 yrs Gender: Male : 1965 Patient Status: Inpatient Patient Location: [address] [place] [address] Study Date: 03/01/2019 10:26 AM Height: 68 in Weight: 198 lb BSA: 2.0 m2 Procedure: A two-dimensional transthoracic echocardiogram with color flow and Doppler was performed. Study Quality: Fair. Reason For Study: PULMONARY EDEMA History: PULMONARY EDEMA. Ordering Physician: KEATON LA Performed By: Mouna Lauren Interpretation Summary The left ventricle is mildly dilated. There is normal left ventricular wall thickness. LV EF is 35% Left ventricular systolic function is moderately reduced. There is moderate global hypokinesis of the left ventricle. There is no thrombus. Probably no ASD,VSD,or PFO. The right ventricle is normal in size and function. The right atrium is normal. The left atrial size is normal. There is no evidence of mitral valve prolapse. There is no vegetation seen on the mitral valve. There is no mitral valve stenosis. Eccentric posterioly directed moderate MR jet. There is no aortic valvular vegetation. There is no aortic valve stenosis There is no LVOT obstruction. No aortic regurgitation is present. There is no tricuspid stenosis. There is a mild amount of tricuspid regurgitation There is mild pulmonary hypertension by echo RVSP is 34 mm of Hg , with RA mean f 10. There is no pulmonic valvular stenosis. There is a mild amount of pulmonic regurgitation The aortic root is normal size. There is no pericardial effusion. Moderate size left pleural effusion. MMode/2D Measurements & Calculations RVDd: 2.4 cm LVIDd: 5.8 cm FS: 16.6 % Ao root diam: 3.0 cm IVSd: 1.1 cm LVIDs: 4.8 cm EDV(Teich): 164.1 ml Ao root area: 7.2 cm2 LVPWd: 1.1 cm ESV(Teich): 107.8 ml EF(Teich): 34.3 % Doppler Measurements & Calculations MV E max sandy: MV dec slope: Ao V2 max: LV V1 max P.0 cm/sec 545.8 cm/sec2 117.0 cm/sec 2.9 mmHg MV A max sandy: MV dec time: 0.17 secAo max P.5 mmHgLV V1 max: 51.3 cm/sec 84.5 cm/sec MV E/A: 1.8 LV dP/dt: 2817 mmHg/s PA V2 max: PI end-d sandy: TR max sandy: 96.0 cm/sec 92.9 cm/sec 243.1 cm/sec PA max P.7 mmHg TR max P.6 mmHg Left Ventricle The left ventricle is mildly dilated. There is normal left ventricular wall thickness. LV EF is 35%. Left ventricular systolic function is moderately reduced. There is moderate global hypokinesis of the left ventricle. There is no thrombus. Probably no ASD,VSD,or PFO. Right Ventricle The right ventricle is normal in size and function. Atria The right atrium is normal. The left atrial size is normal. Mitral Valve There is no evidence of mitral valve prolapse. There is no vegetation seen on the mitral valve. There is no mitral valve stenosis. Eccentric posterioly directed moderate MR jet. Aortic Valve There is no aortic valvular vegetation. There is no aortic valve stenosis. There is no LVOT obstruction. No aortic regurgitation is present. Tricuspid Valve There is no tricuspid stenosis. There is a mild amount of tricuspid regurgitation. There is mild pulmonary hypertension by echo. RVSP is 34 mm of Hg , with RA mean f 10. Pulmonic Valve There is no pulmonic valvular stenosis. There is a mild amount of pulmonic regurgitation. Great Vessels The aortic root is normal size. Effusions There is no pericardial effusion. Moderate size left pleural effusion. : KEATON LA > Orin Miguel
[2019-03-01 19:30] LABS: CREATINE KINASE MB 2.84 ng/mL (<4.55); TROPONIN I 0.026 ng/mL
[2019-03-01] MEDS: ATORVASTATIN CALCIUM 40 MG TABLET PO SCH (21:28)
[2019-03-02] MEDS: LEVOTHYROXINE SODIUM 0.075 MG TABLET PO SCH (05:23)
[2019-03-02 06:44] LABS: ABSOLUTE LYMPHOCYTES (AUTO) 1.6 10^3/uL (0.5-4.7); ABSOLUTE MONOCYTES (AUTO) 0.8 10^3/uL (0.1-1.4); ABSOLUTE NEUT (AUTO) 9.8 10^3/uL (1.7-8.2); BASOPHILS % (AUTO) 0.1 % (0-2); HEMOGLOBIN 13.6 g/dL (13.5-17.0); MEAN CORPUSCULAR HGB CONC 33.1 g/dL (32.0-36.0); MEAN CORPUSCULAR VOLUME 88 fl (80-97); MONOCYTES % (AUTO) 6.4 % (3-13); PLATELET COUNT 222 10^3/uL (150-450); RED BLOOD COUNT 4.68 10^6/uL (4.35-5.55); SEGMENTED NEUTROPHILS % (AUTO) 80.5 % (42-78); TOTAL CELLS COUNTED % (AUTO) 100 %; WHITE BLOOD COUNT 12.2 10^3/uL (4.0-10.5)
[2019-03-02 06:50] LABS: ALANINE AMINOTRANSFERASE 29 U/L (21-72); ALBUMIN 4.7 g/dL (3.5-5.0); ALKALINE PHOSPHATASE 58 U/L (38-126); ANION GAP 14 (5-19); ASPARTATE AMINO TRANSFERASE 25 U/L (17-59); BILIRUBIN,DIRECT 0.3 mg/dL (0.0-0.4); BILIRUBIN,TOTAL 0.5 mg/dL (0.2-1.3); BLOOD UREA NITROGEN 29 mg/dL (7-20); CALCIUM 9.4 mg/dL (8.4-10.2); CARBON DIOXIDE 24 mmol/L (22-30); CHLORIDE 104 mmol/L (98-107); GLUCOSE 105 mg/dL (75-110); POTASSIUM 4.3 mmol/L (3.6-5.0); SODIUM 142.3 mmol/L (137-145); TOTAL PROTEIN 8.1 g/dL (6.3-8.2)
[2019-03-02 06:53] LABS: ANION GAP 13 (5-19); BLOOD UREA NITROGEN 29 mg/dL (7-20); CALCIUM 9.4 mg/dL (8.4-10.2); CARBON DIOXIDE 25 mmol/L (22-30); CHLORIDE 104 mmol/L (98-107); GLUCOSE 105 mg/dL (75-110); POTASSIUM 4.3 mmol/L (3.6-5.0); SODIUM 142.2 mmol/L (137-145)
[2019-03-02] MEDS: FONDAPARINUX SODIUM INJ 2.5 MG/0.5 ML DISP.SYRIN SUBCUT SCH (09:07)
[2019-03-02] MEDS: LISINOPRIL 10 MG TABLET PO SCH (09:08)
[2019-03-02] MEDS: CLOPIDOGREL BISULFATE 75 MG TABLET PO SCH (09:08)
[2019-03-02] MEDS: DOCUSATE SODIUM 100 MG CAPSULE PO SCH ×2 (09:08→17:04)
[2019-03-02] MEDS: FAMOTIDINE 20 MG TABLET PO SCH ×2 (09:08→22:26)
[2019-03-02] MEDS: FUROSEMIDE 20 MG TABLET PO SCH ×2 (09:08→17:04)
[2019-03-02] MEDS: METOPROLOL SUCCINATE 50 MG TAB.SR.24H PO SCH (09:08)
--- NOTE | 2019-03-02 18:27 | PDOC PROGRESS REPORT ---
Subjective Reason For Visit: ACUTE PULMONARY EDEMA,ACUTE RESPIRATORY FAILURE Physical Exam Vital Signs: Temp Pulse Resp BP Pulse Ox 97.9 F 68 14 105/71 100 03/02/19 15:05 03/02/19 15:05 03/02/19 15:05 03/02/19 15:05 03/02/19 15:05 Intake & Output 03/01/19 03/02/19 03/03/19 06:59 06:59 06:59 Intake Total 14 835 952 Output Total 875 500 Balance 14 40 452 Weight 90.1 kg 88.4 kg Results Laboratory Results: 03/02/19 05:40 03/02/19 05:40 03/02/19 03/02/19 03/02/19 05:40 05:40 05:40 WBC 12.2 H RBC 4.68 Hgb 13.6 Hct 41.0 MCV 88 MCH 29.0 MCHC 33.1 RDW 15.0 H Plt Count 222 Seg Neutrophils % 80.5 H Lymphocytes % 13.0 Monocytes % 6.4 Eosinophils % 0.0 Basophils % 0.1 Absolute Neutrophils 9.8 H Absolute Lymphocytes 1.6 Absolute Monocytes 0.8 Absolute Eosinophils 0.0 Absolute Basophils 0.0 Sodium 142.2 142.3 Potassium 4.3 4.3 Chloride 104 104 Carbon Dioxide 25 24 Anion Gap 13 14 BUN 29 H 29 H Creatinine 1.12 1.09 Est GFR ( Amer) > 60 > 60 Est GFR (Non-Af Amer) > 60 > 60 Glucose 105 105 Calcium 9.4 9.4 Magnesium 2.2 Total Bilirubin 0.5 AST 25 ALT 29 Alkaline Phosphatase 58 Total Protein 8.1 Albumin 4.7 03/01/19 03/01/19 03/01/19 03:50 03:50 06:22 Creatine Kinase 137 128 CK-MB (CK-2) 1.81 Troponin I 0.027 NT-Pro-B Natriuret Pep 2520 H 03/01/19 03/01/19 03/01/19 06:22 11:58 11:58 Creatine Kinase 147 CK-MB (CK-2) 2.39 2.81 Troponin I 0.041 0.040 NT-Pro-B Natriuret Pep 03/01/19 03/01/19 03/02/19 18:29 18:29 05:40 Creatine Kinase 153 CK-MB (CK-2) 2.84 Troponin I 0.026 NT-Pro-B Natriuret Pep 1960 H Impressions: Thyroid Ultrasound 03/01/19 00:00 IMPRESSION: The right lobe is slightly prominent in size. The gland is diffusely heterogeneous but no definable masses are present. Chest X-Ray 03/01/19 03:44 IMPRESSION: Cardiomegaly with mild diffuse interstitial edema copyright 2011 [employer]- All Rights Reserved Assessment and Plan - Diagnosis (1) Hypertensive emergency Is this a current diagnosis for this admission?: Yes Plan: After admission his blood pressure was 205/130. Patient also found to have acute pulmonary edema and new onset CHF. (2) Acute pulmonary edema Is this a current diagnosis for this admission?: Yes Plan: Patient presented with dyspnea. Patient has been managed accordingly. (3) New onset of congestive heart failure Is this a current diagnosis for this admission?: Yes Plan: His echo revealed ejection fraction of 35% and moderately reduced left ventricular function and hypokinesis. Patient is being managed with Lasix and cardioprotective medications. (4) Newly diagnosed hypothyroidism Is this a current diagnosis for this admission?: Yes Plan: At admission his TSH found to be 90 with low free T4. Patient reports his sister also has hypothyroidism. I increase the dose of his Synthroid from 0.075mg to 100 mcg. Patient needs outpatient follow-up and repeat his TSH level in 3 to 6 months. (5) Coronary artery disease Qualifiers: Coronary Disease-Associated Artery/Lesion type: [place] artery Is this a current diagnosis for this admission?: Yes Plan: Currently no anginal symptoms. Patient is status post quadruple coronary artery bypass graft and stent placement recently. (6) Hypertension Qualifiers: Hypertension type: essential hypertension Qualified Code(s): I10 - Essential (primary) hypertension Is this a current diagnosis for this admission?: Yes Plan: Uncontrolled. We will review his medication and adjusted according (7) Hyperlipidemia Qualifiers: Hyperlipidemia type: unspecified Qualified Code(s): E78.5 - Hyperlipidemia, unspecified Is this a current diagnosis for this admission?: Yes Plan: Continue current regimen
[2019-03-02] MEDS: ATORVASTATIN CALCIUM 40 MG TABLET PO SCH (22:26)
[2019-03-03] MEDS: LEVOTHYROXINE SODIUM 0.1 MG TABLET PO SCH (05:38)
[2019-03-03 06:09] LABS: ABSOLUTE EOSINOPHILS # (AUTO) 0.1 10^3/uL (0.0-0.6); ABSOLUTE LYMPHOCYTES (AUTO) 2.8 10^3/uL (0.5-4.7); ABSOLUTE MONOCYTES (AUTO) 0.5 10^3/uL (0.1-1.4); ABSOLUTE NEUT (AUTO) 5.5 10^3/uL (1.7-8.2); BASOPHILS % (AUTO) 0.5 % (0-2); EOSINOPHILS % (AUTO) 0.6 % (0-6); HEMATOCRIT 39.1 % (37.9-51.0); HEMOGLOBIN 13.2 g/dL (13.5-17.0); LYMPHOCYTES % (AUTO) 31.1 % (13-45); MEAN CORPUSCULAR HEMOGLOBIN 29.4 pg (27.0-33.4); MEAN CORPUSCULAR HGB CONC 33.7 g/dL (32.0-36.0); MEAN CORPUSCULAR VOLUME 87 fl (80-97); MONOCYTES % (AUTO) 5.4 % (3-13); PLATELET COUNT 190 10^3/uL (150-450); RED BLOOD COUNT 4.48 10^6/uL (4.35-5.55); RED CELL DISTRIBUTION WIDTH 15.1 % (11.5-14.0); SEGMENTED NEUTROPHILS % (AUTO) 62.4 % (42-78); TOTAL CELLS COUNTED % (AUTO) 100 %; WHITE BLOOD COUNT 8.9 10^3/uL (4.0-10.5)
[2019-03-03 06:27] LABS: ANION GAP 10 (5-19); BLOOD UREA NITROGEN 28 mg/dL (7-20); CARBON DIOXIDE 27 mmol/L (22-30); CHLORIDE 103 mmol/L (98-107); GLUCOSE 84 mg/dL (75-110); POTASSIUM 4.4 mmol/L (3.6-5.0); SODIUM 140.4 mmol/L (137-145)
[2019-03-03] MEDS: FONDAPARINUX SODIUM INJ 2.5 MG/0.5 ML DISP.SYRIN SUBCUT SCH (08:48)
[2019-03-03] MEDS: FAMOTIDINE 20 MG TABLET PO SCH ×2 (09:35→21:11)
[2019-03-03] MEDS: LISINOPRIL 10 MG TABLET PO SCH (09:35)
[2019-03-03] MEDS: CLOPIDOGREL BISULFATE 75 MG TABLET PO SCH (09:35)
[2019-03-03] MEDS: METOPROLOL SUCCINATE 50 MG TAB.SR.24H PO SCH (09:36)
[2019-03-03] MEDS: DOCUSATE SODIUM 100 MG CAPSULE PO SCH ×2 (09:36→17:07)
[2019-03-03] MEDS: FUROSEMIDE 20 MG TABLET PO SCH ×2 (09:36→17:07)
[2019-03-03] MEDS ORDERED: LEVOTHYROXINE SODIUM 0.075 MG TABLET PO SCH (10:00)
--- NOTE | 2019-03-03 15:08 | PDOC PROGRESS REPORT ---
Subjective Progress Note for:: 03/03/19 Subjective:: No significant event overnight. I seen patient sitting on recliner. He reports his his shortness of breath is subsiding steadily. Reason For Visit: ACUTE PULMONARY EDEMA,ACUTE RESPIRATORY FAILURE Physical Exam Vital Signs: Temp Pulse Resp BP Pulse Ox 97.8 F 83 12 105/69 99 03/03/19 11:14 03/03/19 14:00 03/03/19 11:14 03/03/19 11:14 03/03/19 11:14 Intake & Output 03/02/19 03/03/19 03/04/19 06:59 06:59 06:59 Intake Total 835 952 Output Total 875 1575 Balance -40 -623 Weight 88.4 kg 88.4 kg General appearance: PRESENT: no acute distress Head exam: PRESENT: atraumatic Eye exam: PRESENT: conjunctiva pink Neck exam: ABSENT: carotid bruit, JVD, lymphadenopathy, thyromegaly Respiratory exam: PRESENT: clear to auscultation phu. ABSENT: rales, rhonchi, wheezes Cardiovascular exam: PRESENT: RRR. ABSENT: diastolic murmur, rubs, systolic murmur GI/Abdominal exam: PRESENT: normal bowel sounds, soft. ABSENT: distended, guarding, mass, organolmegaly, rebound, tenderness Extremities exam: PRESENT: +1 edema Neurological exam: PRESENT: alert, awake, oriented to person, oriented to place, oriented to time, oriented to situation Results Laboratory Results: 03/03/19 05:20 03/03/19 05:20 03/03/19 03/03/19 05:20 05:20 WBC 8.9 RBC 4.48 Hgb 13.2 L Hct 39.1 MCV 87 MCH 29.4 MCHC 33.7 RDW 15.1 H Plt Count 190 Seg Neutrophils % 62.4 Lymphocytes % 31.1 Monocytes % 5.4 Eosinophils % 0.6 Basophils % 0.5 Absolute Neutrophils 5.5 Absolute Lymphocytes 2.8 Absolute Monocytes 0.5 Absolute Eosinophils 0.1 Absolute Basophils 0.0 Sodium 140.4 Potassium 4.4 Chloride 103 Carbon Dioxide 27 Anion Gap 10 BUN 28 H Creatinine 0.92 Est GFR ( Amer) > 60 Est GFR (Non-Af Amer) > 60 Glucose 84 Calcium 9.0 Magnesium 2.3 03/01/19 13:53 Gonzalez Catheter Urine Culture - Final NO GROWTH 2 DAYS 03/01/19 03/01/19 03/01/19 03:50 03:50 06:22 Creatine Kinase 137 128 CK-MB (CK-2) 1.81 Troponin I 0.027 NT-Pro-B Natriuret Pep 2520 H 03/01/19 03/01/19 03/01/19 06:22 11:58 11:58 Creatine Kinase 147 CK-MB (CK-2) 2.39 2.81 Troponin I 0.041 0.040 NT-Pro-B Natriuret Pep 03/01/19 03/01/19 03/02/19 18:29 18:29 05:40 Creatine Kinase 153 CK-MB (CK-2) 2.84 Troponin I 0.026 NT-Pro-B Natriuret Pep 1960 H Impressions: Thyroid Ultrasound 03/01/19 00:00 IMPRESSION: The right lobe is slightly prominent in size. The gland is diffusely heterogeneous but no definable masses are present. Chest X-Ray 03/01/19 03:44 IMPRESSION: Cardiomegaly with mild diffuse interstitial edema copyright 2011 [employer]- All Rights Reserved Assessment and Plan - Diagnosis (1) Hypertensive emergency Is this a current diagnosis for this admission?: Yes Plan: His blood pressure is stable. (2) Acute pulmonary edema Is this a current diagnosis for this admission?: Yes Plan: Patient presented with dyspnea. Patient has been managed accordingly. (3) New onset of congestive heart failure Is this a current diagnosis for this admission?: Yes Plan: His echo revealed ejection fraction of 35% and moderately reduced left ventricular function and hypokinesis. Patient is being managed with Lasix and cardioprotective medications. (4) Newly diagnosed hypothyroidism Is this a current diagnosis for this admission?: Yes Plan: At admission his TSH found to be 90 with low free T4. Patient reports his sister also has hypothyroidism. I increase the dose of his Synthroid from 0.075mg to 100 mcg. Patient needs outpatient follow-up and repeat his TSH level in 3 to 6 months. (5) Coronary artery disease Qualifiers: Coronary Disease-Associated Artery/Lesion type: [place] artery Is this a current diagnosis for this admission?: Yes Plan: Currently no anginal symptoms. Patient is status post quadruple coronary artery bypass graft and stent placement recently. (6) Hypertension Qualifiers: Hypertension type: essential hypertension Qualified Code(s): I10 - Essential (primary) hypertension Is this a current diagnosis for this admission?: Yes Plan: Uncontrolled. We will review his medication and adjusted according (7) Hyperlipidemia Qualifiers: Hyperlipidemia type: unspecified Qualified Code(s): E78.5 - Hyperlipidemia, unspecified Is this a current diagnosis for this admission?: Yes Plan: Continue current regimen
[2019-03-03] MEDS: ATORVASTATIN CALCIUM 40 MG TABLET PO SCH (21:11)
[2019-03-04] MEDS: LEVOTHYROXINE SODIUM 0.1 MG TABLET PO SCH (05:12)
[2019-03-04 05:55] LABS: ABSOLUTE LYMPHOCYTES (AUTO) 1.4 10^3/uL (0.5-4.7); ABSOLUTE MONOCYTES (AUTO) 1.2 10^3/uL (0.1-1.4); ABSOLUTE NEUT (AUTO) 11.5 10^3/uL (1.7-8.2); BASOPHILS % (AUTO) 0.2 % (0-2); EOSINOPHILS % (AUTO) 0.1 % (0-6); HEMATOCRIT 39.5 % (37.9-51.0); HEMOGLOBIN 13.3 g/dL (13.5-17.0); MEAN CORPUSCULAR HEMOGLOBIN 29.2 pg (27.0-33.4); MEAN CORPUSCULAR HGB CONC 33.6 g/dL (32.0-36.0); MEAN CORPUSCULAR VOLUME 87 fl (80-97); MONOCYTES % (AUTO) 8.5 % (3-13); PLATELET COUNT 201 10^3/uL (150-450); RED BLOOD COUNT 4.55 10^6/uL (4.35-5.55); SEGMENTED NEUTROPHILS % (AUTO) 81.2 % (42-78); TOTAL CELLS COUNTED % (AUTO) 100 %; WHITE BLOOD COUNT 14.1 10^3/uL (4.0-10.5)
[2019-03-04 06:17] LABS: ANION GAP 14 (5-19); BLOOD UREA NITROGEN 25 mg/dL (7-20); CALCIUM 9.1 mg/dL (8.4-10.2); CARBON DIOXIDE 25 mmol/L (22-30); CHLORIDE 102 mmol/L (98-107); GLUCOSE 93 mg/dL (75-110); POTASSIUM 4.5 mmol/L (3.6-5.0); SODIUM 141.2 mmol/L (137-145)
[2019-03-04] MEDS: FONDAPARINUX SODIUM INJ 2.5 MG/0.5 ML DISP.SYRIN SUBCUT SCH (08:24)
--- NOTE | 2019-03-04 08:27 | PDOC DISCHARGE SUMMARY ---
General - Admit/Disc Date/PCP Admission Date/Primary Care Provider: 03/01/19 06:37 Discharge Date: 03/04/19 - Discharge Diagnosis (1) Hypertensive emergency Is this a current diagnosis for this admission?: Yes (2) Acute pulmonary edema Is this a current diagnosis for this admission?: Yes (3) New onset of congestive heart failure Is this a current diagnosis for this admission?: Yes (4) Newly diagnosed hypothyroidism Is this a current diagnosis for this admission?: Yes (5) Coronary artery disease Is this a current diagnosis for this admission?: Yes (6) Hypertension Is this a current diagnosis for this admission?: Yes (7) Hyperlipidemia Is this a current diagnosis for this admission?: Yes - Additional Information Resuscitation Status: Full Code Discharge Diet: Cardiac, Diabetic Discharge Activity: Activity As Tolerated, Balance Activity w/Rest, Weigh Daily Home Medications: Aspirin [Adult Low Dose Aspirin EC] 81 mg PO DAILY 03/01/19 Atorvastatin Calcium [Lipitor 40 mg Tablet] 40 mg PO QHS 03/01/19 Clopidogrel Bisulfate [Plavix 75 mg Tablet] 75 mg PO DAILY 03/01/19 Metoprolol Tartrate [Lopressor 25 mg Tablet] 12.5 mg PO BID 03/01/19 History of Present Illness History of Present Illness: CANDACE SQUIRES is a 53 year old male Hospital Course Hospital Course: This is 53 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 Patient is found to have ejection fraction less than 35% and he has depressed left ventricular function and hypokinesis. Patient's blood pressure at admission was 205/130. His blood work also show elevated BNP and markedly elevated TSH with low free T4 level. His chest x-ray shows cardiomegaly with pulmonary vascular congestion. Patient has been managed with IV Lasix and other cardioprotective medications which includes lisinopril, and metoprolol succinate. For his new onset hypothyroidism patient has been started on levothyroxine. Patient seen and examined while he is sitting on recliner. He does not have new complaint. He is awake alert oriented. He is not in pain or distress. He reports his shortness of breath subsided. Patient is stable enough to go home today. I will send him home with metoprolol succinate 50 mg twice a day lisinopril 20 mg p.o. daily Lipitor 40 mg p.o. nightly and hydralazine 50 mg 3 times a day. Physical Exam Vital Signs: Temp Pulse Resp BP Pulse Ox 99.1 F 78 20 99/62 L 97 03/04/19 04:01 03/04/19 07:00 03/04/19 04:01 03/04/19 04:01 03/04/19 04:01 Intake & Output 03/03/19 03/04/19 03/05/19 06:59 06:59 06:59 Intake Total 952 720 Output Total 1575 4930 Balance -623 -1030 Weight 88.4 kg 87.5 kg General appearance: PRESENT: no acute distress Head exam: PRESENT: atraumatic Eye exam: PRESENT: conjunctiva pink Neck exam: ABSENT: carotid bruit, JVD, lymphadenopathy, thyromegaly Respiratory exam: PRESENT: clear to auscultation phu. ABSENT: rales, rhonchi, wheezes Cardiovascular exam: PRESENT: RRR. ABSENT: diastolic murmur, rubs, systolic murmur Extremities exam: PRESENT: +1 edema Neurological exam: PRESENT: alert, awake, oriented to person, oriented to place, oriented to situation Results Laboratory Results: 03/04/19 05:04 03/04/19 05:04 03/04/19 03/04/19 05:04 05:04 WBC 14.1 H RBC 4.55 Hgb 13.3 L Hct 39.5 MCV 87 MCH 29.2 MCHC 33.6 RDW 15.0 H Plt Count 201 Seg Neutrophils % 81.2 H Lymphocytes % 10.0 L Monocytes % 8.5 Eosinophils % 0.1 Basophils % 0.2 Absolute Neutrophils 11.5 H Absolute Lymphocytes 1.4 Absolute Monocytes 1.2 Absolute Eosinophils 0.0 Absolute Basophils 0.0 Sodium 141.2 Potassium 4.5 Chloride 102 Carbon Dioxide 25 Anion Gap 14 BUN 25 H Creatinine 1.01 Est GFR ( Amer) > 60 Est GFR (Non-Af Amer) > 60 Glucose 93 Calcium 9.1 Magnesium 2.2 03/01/19 13:53 Gonzalez Catheter Urine Culture - Final NO GROWTH 2 DAYS 03/01/19 03/01/19 03/01/19 03:50 03:50 06:22 Creatine Kinase 137 128 CK-MB (CK-2) 1.81 Troponin I 0.027 NT-Pro-B Natriuret Pep 2520 H 03/01/19 03/01/19 03/01/19 06:22 11:58 11:58 Creatine Kinase 147 CK-MB (CK-2) 2.39 2.81 Troponin I 0.041 0.040 NT-Pro-B Natriuret Pep 03/01/19 03/01/19 03/02/19 18:29 18:29 05:40 Creatine Kinase 153 CK-MB (CK-2) 2.84 Troponin I 0.026 NT-Pro-B Natriuret Pep 1960 H Impressions: Thyroid Ultrasound 03/01/19 00:00 IMPRESSION: The right lobe is slightly prominent in size. The gland is diffusely heterogeneous but no definable masses are present. Chest X-Ray 03/01/19 03:44 IMPRESSION: Cardiomegaly with mild diffuse interstitial edema copyright 2011 [employer]- All Rights Reserved Qualifiers - * PATIENT BEING DISCHARGED WITH ANY OF THE FOLLOWING DIAGNOSIS: No Acute Heart Failure Is this a Heart Failure Patient?: Yes Documentation of LVEF assessment?: Yes a) Discharged on ACEI?: N/A Discharged on ARB Reason(s) not discharged on ARNI: ACEI use within the prior 36 hours d) Discharged on evidence-based Beta vanessa(carvedilol, sustained release metoprolol succinate, or bisoprolol)?: Yes e) For LVEF <35%, discharged on Aldosterone antagonist?: Yes Follow-up Appointment scheduled within 7 days?: Yes
[2019-03-04 08:49] VITALS: BP 142/92
[2019-03-04] MEDS: FUROSEMIDE 20 MG TABLET PO SCH (09:14)
[2019-03-04] MEDS: LISINOPRIL 10 MG TABLET PO SCH (09:15)
[2019-03-04] MEDS: DOCUSATE SODIUM 100 MG CAPSULE PO SCH (09:15)
[2019-03-04] MEDS: CLOPIDOGREL BISULFATE 75 MG TABLET PO SCH (09:15)
[2019-03-04] MEDS: METOPROLOL SUCCINATE 50 MG TAB.SR.24H PO SCH (09:15)
[2019-03-04] MEDS: FAMOTIDINE 20 MG TABLET PO SCH (09:15)
== END 2019-03-04 09:52 | disposition home or self-care (01) | DRG 291 ==
LOC: ER 03:34 → EH 06:37 → 3S 08:02
PROVIDERS: ADMIT Emergency Medicine; ATTEND Emergency Medicine
PROC: 5A09357 Assistance with Respiratory Ventilation, Less than 24 Consecutive Hours, Continuous Positive Airway Pressure (ICD-10-PCS; principal; 2019-03-01)
DX: I11.0 Hypertensive heart disease with heart failure (principal); J96.02 Acute respiratory failure with hypercapnia; J96.01 Acute respiratory failure with hypoxia; I16.1 Hypertensive emergency; Z95.1 Presence of aortocoronary bypass graft; I50.1 Left ventricular failure, unspecified; E03.9 Hypothyroidism, unspecified; I25.10 Atherosclerotic heart disease of native coronary artery without angina pectoris; E78.5 Hyperlipidemia, unspecified; R00.0 Tachycardia, unspecified; I25.2 Old myocardial infarction; E66.9 Obesity, unspecified; Z68.34 Body mass index [BMI] 34.0-34.9, adult; F12.10 Cannabis abuse, uncomplicated; Z79.82 Long term (current) use of aspirin; Z95.5 Presence of coronary angioplasty implant and graft; Z87.891 Personal history of nicotine dependence; Z82.49 Family history of ischemic heart disease and other diseases of the circulatory system
CPT/HCPCS: 36415; 71045; 76536; 80048; 80053; 80061; 80307; 81001; 82550; 82553; 82803; 82962; 83036; 83605; 83735; 83880; 84439; 84443; 84481; 84484; 85025; 85610; 87040; 87086; 93005; 93010; 93306; 94640; 94660; 96365; 96366; 96375; 99291; J1652; J1940; J2930; J3490; J7620

== ENCOUNTER → 2019-11-25 | Outpatient (CLI) | payer OTHER ==
[2019-11-25 08:45] LABS: ANION GAP 9 (5-19); BLOOD UREA NITROGEN 16 mg/dL (7-20); CALCIUM 9.4 mg/dL (8.4-10.2); CARBON DIOXIDE 26 mmol/L (22-30); CHLORIDE 105 mmol/L (98-107); CHOLESTEROL 137.09 mg/dL (0-200); GLUCOSE 100 mg/dL (75-110); POTASSIUM 4.5 mmol/L (3.6-5.0); TRIGLYCERIDES 90 mg/dL (<150)
[2019-11-25 08:58] LABS: DIRECT LDL 81 mg/dL (<100)
== END ==
LOC: CCC 07:51
DX: E78.5 Hyperlipidemia, unspecified (principal); I10 Essential (primary) hypertension; I25.10 Atherosclerotic heart disease of native coronary artery without angina pectoris
CPT/HCPCS: 36415; 80048; 80061